=== PATIENT | female | born 1985 | race African-American/Black ===

== ENCOUNTER 2021-06-18 14:34 | Emergency (ER) | payer MEDICAID ==
[~2021-06-18] VITALS: Ht 165.1 cm; Wt 85.0 kg
[2021-06-18 14:36] VITALS: BP 136/70
== END 2021-06-18 18:30 | disposition left against medical advice (07) ==
LOC: ER 14:34 → EDBD 14:34 → ER 18:30
DX: Z53.21 Procedure and treatment not carried out due to patient leaving prior to being seen by health care provider (principal)

== ENCOUNTER 2021-06-21 05:30 | Emergency (ER) | payer MEDICAID ==
[~2021-06-21] VITALS: Ht 162.6 cm; Wt 81.0 kg
[2021-06-21 08:22] LABS: BASOPHILS % 0.3 % (0.0-2.0); EOSINOPHILS % 1.2 % (0.0-5.0); HEMATOCRIT. 33.5 % (36.0-48.0); HEMOGLOBIN. 11.3 g/dL (12.0-16.0); LYMPHOCYTES % 24.9 % (20.0-50.0); MEAN CORPUSCULAR HEMOGLOBIN 28.4 pg (28.0-32.0); MEAN CORPUSCULAR VOLUME 84.1 fL (81.0-99.0); MONOCYTES % 3.7 % (2.0-8.0); NEUTROPHILS % 69.9 % (40.0-76.0); PLATELET 283 x1000/uL (130-400); RED BLOOD CELL COUNT 3.99 mill/uL (4.2-5.4); RED CELL DISTRIBUTION WIDTH 13.6 % (11.6-14.6)
[2021-06-21 08:30] LABS: CHLORIDE 108 mEq/L (98-107)
[2021-06-21 08:34] LABS: ETHANOL BLOOD < 10 mg/dL
[2021-06-21 08:53] LABS: B-HCG QUANTITATIVE 13931 mIU/mL (<3)
[2021-06-21 12:04] VITALS: BP 126/81
== END 2021-06-21 12:04 | disposition home or self-care (01) ==
LOC: ER 05:30
DX: O26.891 Other specified pregnancy related conditions, first trimester (principal); R10.30 Lower abdominal pain, unspecified; F41.9 Anxiety disorder, unspecified; Z3A.01 Less than 8 weeks gestation of pregnancy; O09.521 Supervision of elderly multigravida, first trimester
CPT/HCPCS: 36415; 76801; 80053; 80307; 80320; 80329; 81025; 84702; 85025; 86850; 86900; 99284; G0480

== ENCOUNTER 2021-06-23 01:47 | Emergency (ER) | payer MEDICAID ==
[~2021-06-23] VITALS: Ht 170.2 cm; Wt 96.0 kg
[2021-06-23] MEDS ORDERED: ACETAMINOPHEN 325MG TABLET PO ONE (03:45)
[2021-06-23 05:40] VITALS: BP 128/85
== END 2021-06-23 05:48 | disposition home or self-care (01) ==
LOC: ER 01:47
DX: O26.891 Other specified pregnancy related conditions, first trimester (principal); S80.11XA Contusion of right lower leg, initial encounter; O99.341 Other mental disorders complicating pregnancy, first trimester; Z3A.01 Less than 8 weeks gestation of pregnancy; V03.90XA Pedestrian on foot injured in collision with car, pick-up truck or van, unspecified whether traffic or nontraffic accident, initial encounter; Y93.89 Activity, other specified; Y92.488 Other paved roadways as the place of occurrence of the external cause
CPT/HCPCS: 73590; 73610; 99284

== ENCOUNTER 2021-06-23 10:59 | Emergency (ER) | payer MEDICAID ==
[~2021-06-23] VITALS: Ht 165.1 cm; Wt 72.0 kg
[2021-06-23] MEDS ORDERED: ACETAMINOPHEN 325MG TABLET PO STA (11:23)
[2021-06-23] MEDS ORDERED: SODIUM CHLORIDE 0.9% 1,000 ML IV ONE (11:30)
[2021-06-23] MEDS ORDERED: DIPHENHYDRAMINE 50MG/ML VIAL IV ONE (11:30)
[2021-06-23 13:57] LABS: BASOPHILS % 0.4 % (0.0-2.0); HEMATOCRIT. 36.2 % (36.0-48.0); HEMOGLOBIN. 11.8 g/dL (12.0-16.0); MEAN CORPUSCULAR VOLUME 86.1 fL (81.0-99.0); NEUTROPHILS % 66.6 % (40.0-76.0); RED CELL DISTRIBUTION WIDTH 13.5 % (11.6-14.6)
[2021-06-23 14:03] LABS: CHLORIDE 106 mEq/L (98-107)
[2021-06-23 14:07] LABS: ETHANOL BLOOD < 10 mg/dL
[2021-06-23 14:14] LABS: MEAN PLATELET VOLUME 8.6 fl (7.4-10.4); PLATELET 275 x1000/uL (130-400)
[2021-06-23 14:27] LABS: B-HCG QUANTITATIVE 15087 mIU/mL (<3)
[2021-06-23 16:17] LABS: CLARITY URINE CLOUDY (CLEAR); COLOR URINE YELLOW (YELLOW); KETONES URINE 2+ (NEGATIVE); LEUKOCYTE ESTERASE URINE 1+ (NEGATIVE); NITRITE URINE NEGATIVE (NEGATIVE); OCCULT BLOOD URINE NEGATIVE (NEGATIVE); PH URINE 5.5 (4.5-8.0); PROTEIN URINE NEGATIVE (NEGATIVE); SPECIFIC GRAVITY URINE 1.032 (1.005-1.030)
[2021-06-23 16:22] LABS: *AMPHETAMINES SCREEN URINE NEGATIVE (NEGATIVE); *BENZODIAZEPINES SCREEN URINE NEGATIVE (NEGATIVE); *COCAINE SCREEN URINE NEGATIVE (NEGATIVE); CANNABINOID URINE SCREEN NEGATIVE (NEGATIVE); METHADONE URINE SCREEN NEGATIVE (NEGATIVE); OPIATES URINE SCREEN NEGATIVE (NEGATIVE); PHENCYCLIDINE URINE SCREEN NEGATIVE (NEGATIVE)
[2021-06-23 16:23] LABS: *BARBITURATES SCREEN URINE NEGATIVE (NEGATIVE)
[2021-06-24] MEDS ORDERED: LORAZEPAM 2MG/ML CPJ IM PRN (23:00)
[2021-06-24] MEDS ORDERED: DIAZEPAM 5 MG/ML 2ML CPJ IM NR (23:15)
[2021-06-25] MEDS ORDERED: ONDANSETRON HCL 4MG/2ML INJ IM ONE (18:00)
[2021-06-26 08:38] VITALS: BP 102/54
== END 2021-06-26 10:20 | disposition home or self-care (01) ==
LOC: ER 10:59
DX: O99.341 Other mental disorders complicating pregnancy, first trimester (principal); F53.1 Puerperal psychosis; Z3A.01 Less than 8 weeks gestation of pregnancy; O99.331 Smoking (tobacco) complicating pregnancy, first trimester; Z91.14 Patient's other noncompliance with medication regimen; Z20.822 Contact with and (suspected) exposure to COVID-19; Z75.1 Person awaiting admission to adequate facility elsewhere
CPT/HCPCS: 36415; 76801; 76817; 80053; 80305; 80307; 80320; 80329; 81003; 84702; 85025; 96361; 96374; 99285; J1200; J2405; J7030; U0003; G0480

== ENCOUNTER 2021-07-12 17:40 | Emergency (ER) | payer MEDICAID ==
[~2021-07-12] VITALS: Ht 165.1 cm; Wt 95.5 kg
[2021-07-12 18:25] LABS: BASOPHILS % 0.5 % (0.0-2.0); EOSINOPHILS % 0.9 % (0.0-5.0); HEMATOCRIT. 37.9 % (36.0-48.0); HEMOGLOBIN. 12.4 g/dL (12.0-16.0); LYMPHOCYTES % 34.7 % (20.0-50.0); MEAN CORPUSCULAR HEMOGLOBIN 28.4 pg (28.0-32.0); MEAN CORPUSCULAR VOLUME 86.7 fL (81.0-99.0); MEAN PLATELET VOLUME 8.3 fl (7.4-10.4); MONOCYTES % 5.7 % (2.0-8.0); NEUTROPHILS % 58.2 % (40.0-76.0); PLATELET 270 x1000/uL (130-400); RED BLOOD CELL COUNT 4.37 mill/uL (4.2-5.4); RED CELL DISTRIBUTION WIDTH 14.3 % (11.6-14.6)
[2021-07-12 18:37] LABS: CHLORIDE 109 mEq/L (98-107)
[2021-07-12 19:11] LABS: B-HCG QUANTITATIVE 7836 mIU/mL (<3)
[2021-07-12 20:20] VITALS: BP 122/81
== END 2021-07-12 20:26 | disposition home or self-care (01) ==
LOC: ER 17:40
DX: O03.9 Complete or unspecified spontaneous abortion without complication (principal); F41.9 Anxiety disorder, unspecified
CPT/HCPCS: 36415; 76801; 80053; 84702; 85025; 86850; 86900; 99284